=== PATIENT | male | born 1980 ===

== ENCOUNTER 2019-05-14 11:58 | Emergency (ER) | payer OTHER ==
--- NOTE | 2019-05-14 12:17 | UC ---
Back Pain HPI - HPI Summary HPI Summary: 39-year-old male presents with complaints of "tight muscles" in his lower back since yesterday. Denies fever, chills, abdominal pain, nausea, vomiting, dysuria, frequency, urgency, weakness, numbness, or tingling of the lower extremities, or loss of bowel or bladder control. - History of Current Complaint Chief Complaint: UCBackPain Stated Complaint: BACK PAIN Time Seen by Provider: 05/14/19 12:10 Hx Obtained From: Patient Pain Intensity: 7 - Allergies/Home Medications Allergies/Adverse Reactions: Allergies Allergy/AdvReac Type Severity Reaction Status Date / Time No Known Allergies Allergy Verified 05/14/19 12:11 PMH/Surg Hx/FS Hx/Imm Hx - Additional Past Medical History Additional PMH: Herniated disc, "ruptured left kidney" Previously Healthy: Yes - Surgical History Surgical History: Yes Surgery Procedure, Year, and Place: nephrectomy at age 11 - Family History Known Family History: Positive: Non-Contributory - Social History Occupation: Employed Full-time Lives: With Family Alcohol Use: Weekly Substance Use Type: None Smoking Status (MU): Never Smoked Tobacco Review of Systems All Other Systems Reviewed And Are Negative: Yes Constitutional: Negative: Fever, Chills Skin: Negative: Rash ENT: Positive: Negative Respiratory: Positive: Negative Cardiovascular: Positive: Negative Gastrointestinal: Positive: Negative Genitourinary: Positive: Negative Musculoskeletal: Positive: Other: - See HPI Neurological: Negative: Weakness, Paresthesia, Numbness Is Patient Immunocompromised?: No Physical Exam - Summary Physical Exam Summary: GENERAL APPEARANCE: Well developed, well nourished, alert and cooperative, and appears to be in no acute distress. CARDIAC: Normal S1 and S2. No S3, S4 or murmurs. Rhythm is regular. There is no peripheral edema, cyanosis or pallor. Extremities are warm and well perfused. Capillary refill is less than 2 seconds. Peripheral pulses intact. LUNGS: Clear to auscultation without rales, rhonchi, wheezing or diminished breath sounds. ABDOMEN: Positive bowel sounds. Soft, nondistended, nontender. No guarding or rebound. No masses or hepatosplenomegally. MUSKULOSKELETAL: ROM intact to all extremities. No joint erythema or tenderness. Normal muscular development. Normal gait. BACK: Examination of the spine reveals normal posture, no spinal deformity or tenderness. Mild bilateral paraspinous soft tissue tenderness of the lumbar back with muscular spasm. SKIN: Skin normal color, texture and turgor with no lesions or eruptions. Triage Information Reviewed: Yes Vital Signs: Initial Vital Signs Temp 98.9 F 05/14/19 12:07 Pulse 70 05/14/19 12:07 Resp 18 05/14/19 12:07 BP 112/76 05/14/19 12:07 Pulse Ox 99 05/14/19 12:07 Vital Signs Reviewed: Yes Back Pain Course/Dx - Course Course Of Treatment: 39-year-old male presents with complaints of "tight muscles" in his lower back since yesterday. Denies fever, chills, abdominal pain, nausea, vomiting, dysuria, frequency, urgency, weakness, numbness, or tingling of the lower extremities, or loss of bowel or bladder control. Afebrile. VSS. Patient had mild bilateral paraspinous soft tissue tenderness of the lumbar back with muscular spasm and otherwise unremarkable exam. Recommending conservative treatment for acute low back pain including naproxen 250 mg BID, cyclobenzaprine 10 mg Q8H PRN for spasm, and heat therapy. Anticipatory guidance and warning symptoms reviewed with patient. Verbalizes understanding and agrees with POC. - Differential Dx/Diagnosis Differential Diagnosis/HQI/PQRI: Herniated Disc, Renal Colic, Strain Provider Diagnosis: Acute low back pain Discharge - Sign-Out/Discharge Documenting (check all that apply): Patient Departure All imaging exams completed and their final reports reviewed: No - Discharge Plan Condition: Stable Disposition: HOME Prescriptions: Cyclobenzaprine HCl 10 mg PO Q8HR PRN #15 tablet PRN Reason: Spasms Naproxen [Naproxen 250 mg tab] 250 mg PO BID #30 tablet Patient Education Materials: Acute Low Back Pain (ED) Referrals: No Primary Care Phys,NOPCP [Primary Care Provider] - Additional Instructions: Take naproxen 250 mg 1 tablet every 12 hours with food for the next 5 days then may take every 12 hours as needed for pain. Use cyclobenzaprine (Flexeril) 10 mg 1 tablet every 8 hours as needed for severe pain or spasm. This medication will cause drowsiness so do not take and drive or operate machinery. Use a heating pad to the affected area for 15-20 minutes at least 4 times a day to help with pain and relax the muscles. Return here or follow up with your primary care provider in 3-5 days if no improvement in symptoms. Seek immediate medical attention in the emergency room if you develop fever greater than 100.5 F, have worsening pain, severe abdominal pain, persistent or projectile vomiting, weakness, numbness, or tingling in the lower extremities, you lose control of your bowel or bladder, or have any worsening of symptoms. - Billing Disposition and Condition Condition: STABLE Disposition: Home
--- NOTE | 2019-05-15 09:56 | UC ---
Course/Dx - Diagnoses Provider Diagnoses: Acute low back pain Discharge - Sign-Out/Discharge Documenting (check all that apply): Post-Discharge Follow Up All imaging exams completed and their final reports reviewed: No Studies - Discharge Plan Condition: Stable Disposition: HOME Prescriptions: Cyclobenzaprine HCl 10 mg PO Q8HR PRN #15 tablet PRN Reason: Spasms Naproxen [Naproxen 250 mg tab] 250 mg PO BID #30 tablet Patient Education Materials: Acute Low Back Pain (ED) Referrals: No Primary Care Phys,NOPCP [Primary Care Provider] - Additional Instructions: Take naproxen 250 mg 1 tablet every 12 hours with food for the next 5 days then may take every 12 hours as needed for pain. Use cyclobenzaprine (Flexeril) 10 mg 1 tablet every 8 hours as needed for severe pain or spasm. This medication will cause drowsiness so do not take and drive or operate machinery. Use a heating pad to the affected area for 15-20 minutes at least 4 times a day to help with pain and relax the muscles. Return here or follow up with your primary care provider in 3-5 days if no improvement in symptoms. Seek immediate medical attention in the emergency room if you develop fever greater than 100.5 F, have worsening pain, severe abdominal pain, persistent or projectile vomiting, weakness, numbness, or tingling in the lower extremities, you lose control of your bowel or bladder, or have any worsening of symptoms. - Billing Disposition and Condition Condition: STABLE Disposition: Home
== END 2019-05-14 12:36 | disposition home or self-care (01) ==
LOC: UCEAST 11:58
DX: M54.5 Low back pain (principal); Z90.5 Acquired absence of kidney
CPT/HCPCS: 99202; G0463